=== PATIENT | male | born 1975 | race African-American/Black ===

== ENCOUNTER 2020-06-10 14:33 | Emergency (ER) | payer SELFPAY ==
[~2020-06-10] VITALS: Ht 172.7 cm; Wt 78.9 kg
[2020-06-10] MEDS ORDERED: CLOTRIMAZOLE15 GM TOPIC (15:15)
[2020-06-10] MEDS ORDERED: LISINOPRIL-HCT1 EAC2 ORAL (15:15)
[2020-06-10] MEDS ORDERED: METFORMIN HCL500 M1 ORAL (15:15)
--- NOTE | 2020-06-10 15:21 | Emergency Room Report ---
History of Present Illness General Chief Complaint: Skin Rash/Abscess Source: Patient Present Illness HPI Disclaimer: Please note that this report is being documented using [employer] technology. This can lead to erroneous entry secondary to incorrect interpretation by the dictating instrument. HPI: 53-year-old male with history of hypertension, diabetes presents for evaluation of rash. Patient states he was doing a lot of walking has been very sweaty recently. He noticed a rash around his groin and upper thighs over the past 5 days. Reports pain with ambulation but denies significant swelling, redness, crusting lesions, skin sloughing, breakdown. He has been scratching it and noted minor excoriations and scabbing. Denies pain in the testicle, urethral discharge, recent damage, denies sexual contact within the past few months. Denies ulcerations or vesicles. Otherwise in his usual state of health and denies fever, chills, chest pain, shortness of breath, nausea, vomiting, diarrhea. He is also requesting a medication refill of his lisinopril /hydrochlorothiazide combination pill as well as his metformin. He has been without them for several weeks. 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 EOMI. Resp: Normal work of breathing : Testes in anatomic position, nontender. Circumcised male, no urethral discharge, no ulcerations or vesicles. Skin: Intact. Skin around the scrotum and the upper thighs bilaterally is mildly erythematous but no edema, no crepitus, no free air, no signs of necrosis , no vesicles, no evidence of deep space infection. No skin sloughing, Nikolsky negative. Mild excoriations with overlying scabs. MSK: Normal tone and bulk. Moving all extremities. No obvious deformity. Neuro: Awake and alert. Mentating appropriately Medical Decision Making Homeless Attestation Patient has been medically screened and is stable for outpatient follow up Diagnostic Impression: Primary Impression: Tinea cruris Additional Impression: Medication refill ER Course This a 44-year-old male presenting for evaluation of a genital rash 5 days duration as well as requesting medication refill. Regarding the rash, appears to be either mild dermatitis or possible tinea cruris. I see no evidence of cellulitis, deep space infection, herpes, syphilis, TN, Tonny's or other concerning findings. The patient will be prescribed clotrimazole cream and instructed to keep the region is dry and protected as possible. Accu-Chek is 115. Otherwise has no complaints. Do not believe he requires emergent labs or imaging today. I will refill his metformin and his antihypertensives. Stable for outpatient follow-up. I will refer him to primary care clinic and instructed him to return to the ED with new or worsening symptoms. He understands and agrees with this treatment plan. Laboratory Tests Test 06/10/20 15:19 POC Whole Blood Glucose 115 MG/DL (74-106) H Last Vital Signs Date Time Temp Pulse Resp B/P (MAP) Pulse Ox O2 Delivery O2 Flow Rate FiO2 06/10/20 14:59 98.4 109 22 143/89 (107) 95 Room Air Disposition: HOME, SELF-CARE Condition: Stable Scripts Lisinopril/Hydrochlorothiazide 20-25 Mg Tab (LISINOPRIL-HCTZ 20-25 MG TAB) 1 Each Tablet 1 TAB ORAL DAILY for 30 Days, #30 TAB Prov: Francisco Lehman MD 06/10/20 Metformin Hcl* (METFORMIN HCL*) 500 Mg Tablet 500 MG ORAL TWICE A DAY, #60 TAB Prov: Francisco Lehman MD 06/10/20 Clotrimazole* (LOTRIMIN*) 15 Gm Cream..g. 1 APPLIC TOPIC TWICE A DAY, #1 TUB Prov: Francisco Lehman MD 06/10/20 Referrals: [facility] Patient Instructions: Jock Itch Additional Instructions: Please follow-up with your primary care doctor in the next 1 to 3 days to discuss this emergency department visit and for reevaluation. If you have any new or worsening symptoms please return to the emergency department for reevaluation. Please note that this report is being documented using [employer] technology. This can lead to erroneous entry secondary to incorrect interpretation by the dictating instrument. Francisco Lehman MD Jun 10, 2020 15:21
[2020-06-10 15:39] VITALS: BP 140/86
== END 2020-06-10 15:35 | disposition home or self-care (01) ==
LOC: EMR 15:15
DX: R21 Rash and other nonspecific skin eruption (principal); Z76.0 Encounter for issue of repeat prescription; E11.9 Type 2 diabetes mellitus without complications; I10 Essential (primary) hypertension
CPT/HCPCS: 82962; 99282